=== PATIENT | female | born 1970 | race African-American/Black ===

== ENCOUNTER 2018-08-03 10:22 | Inpatient (IN) | payer OTHER ==
[~2018-08-03] VITALS: Ht 177.8 cm; Wt 161.5 kg
[2018-08-03] MEDS ORDERED: ALBUTEROL (0.083%) 2.5MG/3ML NEB HHN STA (11:48)
[2018-08-03] MEDS ORDERED: IPRATROPIUM BROMIDE (0.02%) 0.5MG/2.5ML NEB HHN STA (11:48)
[2018-08-03] MEDS ORDERED: MAGNESIUM 2 G PREMIX 50 ML IV STA (11:52)
[2018-08-03] MEDS ORDERED: METHYLPREDNISOLONE SOD SUCC 125 MG/2 ML VIAL IV STA (11:52)
[2018-08-03] MEDS ORDERED: LEVOFLOXACIN 750MG PREMIX 150 ML IV ONE (12:00)
[2018-08-03 12:32] LABS: BASOPHILS % 0.8 % (0.0-2.0); HEMATOCRIT. 42.8 % (36.0-48.0); HEMOGLOBIN. 13.5 g/dL (12.0-16.0); LYMPHOCYTES % 17.1 % (20.0-50.0); MEAN CORPUSCULAR HEMOGLOBIN 28.2 pg (28.0-32.0); NEUTROPHILS % 70.1 % (40.0-76.0); PLATELET 228 x1000/uL (130-400); RED BLOOD CELL COUNT 4.81 mill/uL (4.2-5.4)
[2018-08-03 12:37] LABS: CHLORIDE 102 mEq/L (98-107)
[2018-08-03 12:40] LABS: INR 1.2; PARTIAL THROMBOPLASTIN TIME 32.1 sec (23.4-31.0); PROTHROMBIN TIME 11.6 sec (9.1-11.1)
[2018-08-03 12:41] LABS: HCG SCREEN NEGATIVE
[2018-08-03 12:42] LABS: ETHANOL BLOOD < 10 mg/dL
[2018-08-03] MEDS ORDERED: SODIUM CHLORIDE 0.9% 1,000 ML IV ONE (12:53)
[2018-08-03] MEDS ORDERED: MAGNESIUM/ALUMINUM HYDROXIDE/SIMETHICONE 30ML UDC PO PRN (14:00)
[2018-08-03] MEDS ORDERED: HYDROCODONE/ACETAMINOPHEN 5/325MG TABLET PO PRN (14:00)
[2018-08-03] MEDS ORDERED: ACETAMINOPHEN 325MG TABLET PO PRN (14:00)
[2018-08-03] MEDS ORDERED: CLONIDINE 0.1MG TABLET PO PRN (14:00)
[2018-08-03] MEDS ORDERED: DIPHENHYDRAMINE 50MG/ML VIAL IV PRN (14:00)
[2018-08-03] MEDS ORDERED: ONDANSETRON HCL 4MG/2ML INJ IV PRN (14:00)
[2018-08-03 15:46] LABS: CREATINE KINASE 557 IU/L (26-192)
[2018-08-03] MEDS ORDERED: METHYLPREDNISOLONE SOD SUCC 40 MG/ML VIAL IV SCH (17:00)
[2018-08-03 17:36] LABS: BG BASE EXCESS 3.8 mmol/L (-2.0-2.0); BG DEOXYHEMOGLOBIN 19.7 % (0.0-5.0); BG FRACTION INSPIRED OXYGEN 21; BG HCO3 ACT 32.1 mmol/L (22.0-26.0); BG METHEMOGLOBIN 0.2 % (0.0-1.5); BG OXYGEN SATURATION 80.1 % (92.0-98.5); BG OXYHEMOGLOBIN 79.1 % (94.0-97.0); BG PCO2 65.7 mmHg (35.0-45.0); BG PH 7.307 (7.350-7.450); BG PO2 46.6 mmHg (75.0-100.0); BG SAMPLE SITE RIGHT BRACHIAL; BG TOTAL HEMOGLOBIN 14.2 g/dL (12.0-18.0); BG VENT MODE ROOM AIR
[2018-08-03 18:48] VITALS: BP 128/83
[2018-08-03 20:00] VITALS: BP_SYST 110; BP_SYST 111; BP_DIAS 63; BP_DIAS 67
[2018-08-03] MEDS: ENOXAPARIN 40MG/0.4ML SYR SUBCUT SCH (20:01)
[2018-08-03] MEDS: MONTELUKAST SODIUM 10MG TABLET PO SCH (20:01)
[2018-08-03] MEDS: FAMOTIDINE 20MG TABLET PO SCH (20:01)
[2018-08-03] MEDS: PREDNISONE 20MG TABLET PO SCH (20:01)
[2018-08-03 22:00] VITALS: BP 105/62
[2018-08-03] MEDS ORDERED: DEXTROSE 50% WATER 50ML SYRINGE IV PRN (23:30)
[2018-08-04] VITALS (12 sets, daily range): BP systolic 99–136; BP diastolic 49–81
[2018-08-04] MEDS: BUDESONIDE 0.5MG/2ML NEB HHN SCH ×3 (00:11→21:08)
[2018-08-04] MEDS: IPRATROPIUM/ALBUTEROL 0.5-3(2.5)MG/3ML NEB INH PRN ×2 (00:12→21:08)
[2018-08-04 01:14] LABS: CREATINE KINASE 676 IU/L (26-192)
[2018-08-04] MEDS: BLOOD SUGAR DIAGNOSTIC STRIP TEST SCH ×4 (06:13→20:56)
[2018-08-04 07:08] LABS: BG BASE EXCESS 5.1 mmol/L (-2.0-2.0); BG CARBOXYHEMOGLOBIN 1.2 % (0.5-1.5); BG DEOXYHEMOGLOBIN 4.7 % (0.0-5.0); BG HCO3 ACT 35.3 mmol/L (22.0-26.0); BG METHEMOGLOBIN 0.3 % (0.0-1.5); BG OXYGEN SATURATION 95.2 % (92.0-98.5); BG OXYHEMOGLOBIN 93.8 % (94.0-97.0); BG PCO2 81.3 mmHg (35.0-45.0); BG PH 7.255 (7.350-7.450); BG PO2 85.1 mmHg (75.0-100.0); BG SAMPLE SITE RIGHT RADIAL; BG TOTAL HEMOGLOBIN 14.4 g/dL (12.0-18.0); BG VENT MODE NASAL CANNULA
[2018-08-04] MEDS: INSULIN LISPRO 100 UNITS/ML SUBCUT SCH ×4 (07:20→20:57)
[2018-08-04] MEDS: PREDNISONE 20MG TABLET PO SCH (08:16)
[2018-08-04] MEDS: LORATADINE 10MG TABLET PO SCH (08:16)
[2018-08-04] MEDS: FAMOTIDINE 20MG TABLET PO SCH ×2 (08:16→20:56)
[2018-08-04] MEDS: ENOXAPARIN 40MG/0.4ML SYR SUBCUT SCH ×2 (08:17→20:56)
[2018-08-04 15:21] LABS: BG BASE EXCESS 4.3 mmol/L (-2.0-2.0); BG CARBOXYHEMOGLOBIN 0.7 % (0.5-1.5); BG DEOXYHEMOGLOBIN 13.3 % (0.0-5.0); BG FRACTION INSPIRED OXYGEN 21; BG HCO3 ACT 32.4 mmol/L (22.0-26.0); BG METHEMOGLOBIN 0.2 % (0.0-1.5); BG OXYGEN SATURATION 86.6 % (92.0-98.5); BG OXYHEMOGLOBIN 85.8 % (94.0-97.0); BG PCO2 64.7 mmHg (35.0-45.0); BG PH 7.318 (7.350-7.450); BG PO2 55.6 mmHg (75.0-100.0); BG SAMPLE SITE LEFT RADIAL; BG TOTAL HEMOGLOBIN 14.2 g/dL (12.0-18.0); BG VENT MODE ROOM AIR
[2018-08-04] MEDS ORDERED: LIDOCAINE HCL/PF 1% 2ML VIAL ONE ×2 (15:49→15:51)
[2018-08-04] MEDS: METHYLPREDNISOLONE SOD SUCC 40 MG/ML VIAL IV SCH ×2 (15:51→22:04)
[2018-08-04] MEDS: NICOTINE 14MG PATCH TD SCH (15:52)
[2018-08-04] MEDS: MONTELUKAST SODIUM 10MG TABLET PO SCH (17:38)
[2018-08-04] MEDS: GUAIFENESIN-DM 200MG-20MG/10ML UDC PO PRN ×2 (17:40→21:56)
[2018-08-05] VITALS (12 sets, daily range): BP systolic 102–142; BP diastolic 42–88
[2018-08-05] MEDS: IPRATROPIUM/ALBUTEROL 0.5-3(2.5)MG/3ML NEB INH PRN ×3 (06:08→21:11)
[2018-08-05] MEDS: BLOOD SUGAR DIAGNOSTIC STRIP TEST SCH ×4 (06:12→20:09)
[2018-08-05] MEDS: METHYLPREDNISOLONE SOD SUCC 40 MG/ML VIAL IV SCH ×3 (06:13→22:16)
[2018-08-05 07:10] LABS: BASOPHILS % 0.2 % (0.0-2.0); HEMOGLOBIN. 13.9 g/dL (12.0-16.0); LYMPHOCYTES % 29.7 % (20.0-50.0); MEAN CORPUSCULAR HEMOGLOBIN 28.2 pg (28.0-32.0); MEAN PLATELET VOLUME 8.5 fl (7.4-10.4); MONOCYTES % 4.4 % (2.0-8.0); NEUTROPHILS % 65.7 % (40.0-76.0); PLATELET 229 x1000/uL (130-400); RED BLOOD CELL COUNT 4.94 mill/uL (4.2-5.4); RED CELL DISTRIBUTION WIDTH 16.7 % (11.6-14.6)
[2018-08-05 07:11] LABS: CHLORIDE 99 mEq/L (98-107)
[2018-08-05] MEDS: BUDESONIDE 0.5MG/2ML NEB HHN SCH ×2 (07:30→21:11)
[2018-08-05] MEDS: NICOTINE 14MG PATCH TD SCH (07:58)
[2018-08-05] MEDS: ENOXAPARIN 40MG/0.4ML SYR SUBCUT SCH ×2 (07:58→20:09)
[2018-08-05] MEDS: FAMOTIDINE 20MG TABLET PO SCH ×2 (07:58→20:08)
[2018-08-05] MEDS: LORATADINE 10MG TABLET PO SCH (07:58)
[2018-08-05] MEDS: INSULIN LISPRO 100 UNITS/ML SUBCUT SCH ×4 (08:00→20:16)
[2018-08-05 09:05] LABS: BG BASE EXCESS 2.1 mmol/L (-2.0-2.0); BG CARBOXYHEMOGLOBIN 0.8 % (0.5-1.5); BG DEOXYHEMOGLOBIN 7.2 % (0.0-5.0); BG FRACTION INSPIRED OXYGEN 28; BG HCO3 ACT 29.8 mmol/L (22.0-26.0); BG METHEMOGLOBIN 0.3 % (0.0-1.5); BG OXYGEN SATURATION 92.7 % (92.0-98.5); BG OXYHEMOGLOBIN 91.7 % (94.0-97.0); BG PCO2 59.8 mmHg (35.0-45.0); BG PH 7.316 (7.350-7.450); BG PO2 70.2 mmHg (75.0-100.0); BG SAMPLE SITE RIGHT RADIAL; BG TOTAL HEMOGLOBIN 14.6 g/dL (12.0-18.0); BG VENT MODE NASAL CANNULA
[2018-08-05] MEDS ORDERED: LIDOCAINE HCL/PF 1% 2ML VIAL ONE (15:28)
[2018-08-05] MEDS: MONTELUKAST SODIUM 10MG TABLET PO SCH (17:58)
[2018-08-05] MEDS ORDERED: TRAZODONE HCL 50MG TABLET PO SCH (21:00)
[2018-08-06] VITALS (9 sets, daily range): BP systolic 101–141; BP diastolic 41–97
[2018-08-06] MEDS: BLOOD SUGAR DIAGNOSTIC STRIP TEST SCH (06:11)
[2018-08-06] MEDS: METHYLPREDNISOLONE SOD SUCC 40 MG/ML VIAL IV SCH (06:11)
[2018-08-06 06:59] LABS: BASOPHILS % 0.3 % (0.0-2.0); HEMATOCRIT. 42.9 % (36.0-48.0); HEMOGLOBIN. 13.6 g/dL (12.0-16.0); LYMPHOCYTES % 30.5 % (20.0-50.0); MEAN CORPUSCULAR HEMOGLOBIN 28.1 pg (28.0-32.0); MEAN CORPUSCULAR VOLUME 88.8 fL (81.0-99.0); MEAN PLATELET VOLUME 8.5 fl (7.4-10.4); MONOCYTES % 9.3 % (2.0-8.0); NEUTROPHILS % 59.9 % (40.0-76.0); PLATELET 215 x1000/uL (130-400); RED BLOOD CELL COUNT 4.83 mill/uL (4.2-5.4); RED CELL DISTRIBUTION WIDTH 16.5 % (11.6-14.6)
[2018-08-06 07:08] LABS: CHLORIDE 101 mEq/L (98-107)
[2018-08-06] MEDS: INSULIN LISPRO 100 UNITS/ML SUBCUT SCH ×2 (07:20→08:13)
[2018-08-06] MEDS: BUDESONIDE 0.5MG/2ML NEB HHN SCH (07:50)
[2018-08-06] MEDS: IPRATROPIUM/ALBUTEROL 0.5-3(2.5)MG/3ML NEB INH PRN (07:51)
[2018-08-06] MEDS: ENOXAPARIN 40MG/0.4ML SYR SUBCUT SCH (08:00)
[2018-08-06] MEDS: NICOTINE 14MG PATCH TD SCH (08:23)
[2018-08-06] MEDS: LORATADINE 10MG TABLET PO SCH (08:23)
[2018-08-06] MEDS: FAMOTIDINE 20MG TABLET PO SCH (08:23)
[2018-08-06 10:06] LABS: BG BASE EXCESS 7.6 mmol/L (-2.0-2.0); BG CARBOXYHEMOGLOBIN 0.8 % (0.5-1.5); BG DEOXYHEMOGLOBIN 9.2 % (0.0-5.0); BG FRACTION INSPIRED OXYGEN 21; BG HCO3 ACT 35.1 mmol/L (22.0-26.0); BG METHEMOGLOBIN 0.3 % (0.0-1.5); BG OXYGEN SATURATION 90.7 % (92.0-98.5); BG OXYHEMOGLOBIN 89.7 % (94.0-97.0); BG PCO2 62.1 mmHg (35.0-45.0); BG SAMPLE SITE LEFT BRACHIAL; BG TOTAL HEMOGLOBIN 14.3 g/dL (12.0-18.0); BG VENT MODE ROOM AIR
== END 2018-08-06 15:30 | disposition home or self-care (01) | DRG 133 ==
LOC: ER 10:22 → 3WST 13:29 → EDBEDREQ 13:33 → ENRESERV 16:28
PROVIDERS: ADMIT Internal Medicine; ATTEND Internal Medicine
PROC: 5A09357 Assistance with Respiratory Ventilation, Less than 24 Consecutive Hours, Continuous Positive Airway Pressure (ICD-10-PCS; principal; 2018-08-03)
PROC: 5A09357 Assistance with Respiratory Ventilation, Less than 24 Consecutive Hours, Continuous Positive Airway Pressure (ICD-10-PCS; 2018-08-04)
PROC: 5A09357 Assistance with Respiratory Ventilation, Less than 24 Consecutive Hours, Continuous Positive Airway Pressure (ICD-10-PCS; 2018-08-05)
PROC: 5A09357 Assistance with Respiratory Ventilation, Less than 24 Consecutive Hours, Continuous Positive Airway Pressure (ICD-10-PCS; 2018-08-06)
DX: J96.02 Acute respiratory failure with hypercapnia (principal); J84.9 Interstitial pulmonary disease, unspecified; E87.2 Acidosis; J44.1 Chronic obstructive pulmonary disease with (acute) exacerbation; J45.901 Unspecified asthma with (acute) exacerbation; Z68.43 Body mass index [BMI] 50.0-59.9, adult; G89.29 Other chronic pain; E66.9 Obesity, unspecified; D72.821 Monocytosis (symptomatic); F17.210 Nicotine dependence, cigarettes, uncomplicated; J96.01 Acute respiratory failure with hypoxia; Z91.19 Patient's noncompliance with other medical treatment and regimen
CPT/HCPCS: 36415; 36600; 71045; 80048; 82375; 82550; 82805; 82962; 83605; 83735; 83880; 84145; 84484; 84703; 87804; 93005; 93306; 93970; 94644; 96365; 96366; 96375; 99291; G0482; J1200; J1650; J1815; J1956; J2920; J2930; J3475; J3490; J7030; J7512; J7611; J7620; J7626